=== PATIENT | female | born 1995 | race Caucasian/White ===

== ENCOUNTER → 2017-12-10 08:17 | Outpatient (CLI) | payer SELFPAY ==
[2017-12-10 11:12] LABS: HCG,Quantitative 0 mIU/mL
== END ==
PROVIDERS: Visit Provider Nurse Practitioner Obstetrics & Gynecology
DX: Z32.00 Encounter for pregnancy test, result unknown (principal)
CPT/HCPCS: 36415; 84702

== ENCOUNTER → 2018-01-21 15:25 | Outpatient (CLI) | payer MEDICAID, SELFPAY ==
[2018-01-21 16:11] LABS: Basophils % 0.5 % (0.1-2.0); Eosinophils # 0.2 K/mm3 (0.0-0.4); Eosinophils % 2.7 % (0.1-12.0); Hematocrit 46.4 % (37.0-47.0); Hemoglobin 15.4 g/dL (12.2-16.2); Lymphocytes % 37.2 K/mm3 (10-50); Mean Corpuscular HGB Conc 33.2 g/dL (31.8-35.4); Mean Corpuscular Hemoglobin 30.5 pg (27.0-31.2); Mean Corpuscular Volume 91.9 fl (81-99); Mean Platelet Volume 8.3 fl (7.4-10.4); Monocytes # 0.4 K/mm3 (0.1-1.0); Monocytes % 4.6 % (1.7-9.3); Neutrophils # 4.4 K/mm3 (1.8-7.8); Platelet Count 268 K/mm3 (142-424); Red Blood Count 5.05 M/mm3 (4.20-5.40); Red Cell Distribution Width 12.6 % (11.5-17.5); White Blood Count 7.9 K/mm3 (4.8-10.8)
[2018-01-21 19:18] LABS: HCG,Quantitative 5294 mIU/mL
[2018-01-26 05:19] LABS: HIV Screen 4th Generation wRfx Non Reactive (Non Reactive); Hepatitis B Surface Antigen Negative (Negative); Hepatitis C Antibody 0.1 s/co ratio (0.0-0.9); Rapid Plasma Reagin Ab Titer Non Reactive (NonRea<1:1); Rubella Antibodies, IgG 0.94 index (Immune >0.99)
== END ==
PROVIDERS: Family Provider Physician Assistant; PCP Obstetrics & Gynecology; Visit Provider Obstetrics & Gynecology
DX: Z34.90 Encounter for supervision of normal pregnancy, unspecified, unspecified trimester (principal)
CPT/HCPCS: 36415; 84702; 85025; 86592; 86703; 86762; 86850; 87340; 87380; G0432

== ENCOUNTER → 2018-01-28 08:54 | Outpatient (CLI) | payer MEDICAID, SELFPAY ==
--- NOTE | 2018-01-28 08:57 | US_ITS ---
US OB transvaginal HISTORY: ITS.REASON: US OB Dates ORDERING PHYSICIAN: Bri Childs MD PATIENT AGE: 22 years COMPARISON: None FINDINGS: An intrauterine gestational sac is present with a pole with a crown-rump length of 0.56cm correlating to gestational age of 6w3d. heart tones are present with an FHR of 117 bpm's. Yolk sac is noted. Adnexa: 15 mm right corpus luteum. IMPRESSION: Live intrauterine gestation at 6 weeks 3 days with an estimated due date of 09/20/2018
== END ==
PROVIDERS: Family Provider Physician Assistant; Visit Provider Obstetrics & Gynecology
DX: O26.841 Uterine size-date discrepancy, first trimester (principal)
CPT/HCPCS: 36415; 76817; 84702

== ENCOUNTER → 2018-01-28 09:43 | Outpatient (CLI) | payer MEDICAID, SELFPAY | PROVIDERS: Family Provider Physician Assistant; Visit Provider Obstetrics & Gynecology | DX: Z34.90 Encounter for supervision of normal pregnancy, unspecified, unspecified trimester (principal) | CPT/HCPCS: 36415; 84702 ==

== ENCOUNTER → 2018-05-06 09:02 | Outpatient (CLI) | payer MEDICAID, SELFPAY ==
--- NOTE | 2018-05-06 09:06 | US_ITS ---
US OB /maternal detail: INDICATION: For anatomy and dates ITS.REASON: US OB Complete ORDERING PHYSICIAN: Bri Childs MD PATIENT AGE: 22 years TECHNIQUE: ultrasound transabdominal scanning. COMPARISON: Ultrasound 01/28/2018. FINDINGS: Single viable intrauterine gestation. Breach position. Placenta: Anterior placenta grade 1. There is normal amount fluid. The cervix appears satisfactory. Closed and measuring 3.52 cm in length. Complete survey performed and was unremarkable on the submitted images as in PACS. No discrete anomalies identified on survey imaging by technologist. Active fetus. Three-vessel cord with satisfactory umbilical cord insertion. 4- chamber heart noted. Survey of brain & ventricles. Face and neck survey unremarkable. Diaphragm and chest views unremarkable. Abdomen: Both kidneys noted and unremarkable. Stomach noted and satisfactory. Spine: Survey of the spine satisfactory with no anomalies identified nor imaged. Both arms and legs noted. Amniotic Fluid: Adequate. Maternal adnexa: No significant findings. Measurements: Average ultrasound age 20 weeks and 2 days. Gestational Age 20 weeks 3 days. Estimated due date by ultrasound age 509/21/2018. Estimated weight 346 g +/- 50 1 g grams. BPD = 4.79 cm equaling 20 weeks 4 days OFD = 6.0 cm equaling 20 weeks 3 days HC = 7.06 cm equaling 19 weeks 5 days AC = 15.18 cm equaling 20 weeks 3 days FL = 3.31 cm equaling 20 weeks 3 days Growth Percentile= 39% Heart Rate = 149 bpm Cerebellum = 2.00 cm equaling 20 weeks 3 days HC/AC is 1.12. CI is 80%. FL/BPD is 69%. FL/AC is 22%. IMPRESSION: Breech fetus with grossly normal-appearing anatomy scan and normal amount of amnionic fluid with measurements and dating as described above
== END ==
PROVIDERS: PCP Family Medicine; Visit Provider Obstetrics & Gynecology
DX: Z36.0 Encounter for antenatal screening for chromosomal anomalies (principal)
CPT/HCPCS: 76811

== ENCOUNTER → 2018-05-29 08:25 | Outpatient (CLI) | payer MEDICAID, SELFPAY ==
[2018-05-29 08:48] LABS: Glucose,Fasting 84 mg/dL (60-105)
[2018-05-29 10:55] LABS: Glucose 1 Hour 138 mg/dL (74-106)
== END ==
PROVIDERS: Visit Provider Obstetrics & Gynecology
DX: Z34.90 Encounter for supervision of normal pregnancy, unspecified, unspecified trimester (principal)
CPT/HCPCS: 36415; 82951

== ENCOUNTER → 2018-08-12 13:30 | Outpatient (CLI) | payer MEDICAID, SELFPAY ==
--- NOTE | 2018-08-12 13:37 | US_ITS ---
US OB BPP w/Fet-Mat S/D Ordering Physician: Bri Childs MD Patient Age: 22 years: Female HISTORY: ITS.REASON: US OB BPP Growth, S/D Ratio Family history of tetralogy of flow patient was offered high risk scanning, but did not pursue earlier in gestation. TECHNIQUE: ultrasound transabdominal scanning. COMPARISON: May 06, 2018 complete ultrasound. At which time patient was 20 weeks 2 days average ultrasound age ------. FINDINGS:--------- Single viable intrauterine gestation. Cephalic position.. Placenta: Anterior placenta. Grade 2 . Cervix Closed and measuring 3.14 cm in length. Follow-up survey performed . No abnormalities can be identified.. No discrete anomalies identified on survey imaging by technologist.Active fetus.Three-vessel cord with satisfactory umbilical cord insertion. Limited images brain & ventricles. In posterior fossa unremarkable \ limited survey images ofFace and neck survey unremarkable. Diaphragm and chest views unremarkable. 4- chamber heart imaged imaged extensively.. Multiple Cine loop included. RVOT & LVOT imaged . No VSD identified no flow anomalies evident. We did mention that high-risk center is best suited to best exclude TOF other cardiac abnormalities Abdomen: Both kidneys noted and unremarkable. Stomach noted and satisfactory. Spine: Survey of the spine satisfactory with no anomalies identified nor imaged. Both arms and legs noted.Amniotic Fluid: Adequate. . Measurements: Average ultrasound age 36 week 2 day. Gestational Age 34 week 3 day based on LMP 12/14/2017 Estimated due date by ultrasound age 409/07/2018. Estimated weight 2700 grams. +/- 394 g Growth [id number]% BPD = 37 week 3 day OFD = ... 11.57 cm HC = 37 week 3 day AC = 35 week 1 day FL = 35 week 1 day Heart Rate = 135 bpm. ABHAY = 11.14. Largest pocket measuring 4.18 cm LLQ. ========= BIOPHYSICAL PROFILE. 8 of possible 8 points 2 points scored for each category: breathing, movement, tone, & amniotic fluid volume. . ========= SD ratio = 2.5. RI = 0.5 HC/AC = 1.06 CI = 80%.(70-86%). FL/BPD is 74%. FL/AC is 22%. =====IMPRESSION: 36 week 2 Day Average Ultrasound Age.. Cephalic position . Today's Follow-up Anatomical survey unremarkable & WNL Particular attention directed to the cardiac survey. No VSD identified Biophysical profile 8 of possible 8 points. SD ratio 2.5 ABHAY = 11.14.
== END ==
PROVIDERS: PCP Family Medicine; Visit Provider Obstetrics & Gynecology
DX: Z82.79 Family history of other congenital malformations, deformations and chromosomal abnormalities (principal)
CPT/HCPCS: 76811; 76819; 76820

== ENCOUNTER 2018-08-17 11:34 | Outpatient (CLI) | payer MEDICAID, SELFPAY ==
[2018-08-17 11:54] VITALS: BP 107/68; PULSE 97; RESP 18; TEMP 36.8; O2SAT 97; BMI 23.0
[2018-08-17 12:01] VITALS: BMI 22.8
== END 2018-08-17 12:55 | disposition home or self-care (01) ==
LOC: OBOUT 11:35 → OB 11:36
PROVIDERS: PCP Family Medicine; Visit Provider Obstetrics & Gynecology
DX: O47.03 False labor before 37 completed weeks of gestation, third trimester (principal); Z3A.35 35 weeks gestation of pregnancy
CPT/HCPCS: 59025; 96360; 96372

== ENCOUNTER → 2018-08-17 17:15 | Outpatient (CLI) | payer MEDICAID, SELFPAY | PROVIDERS: Visit Provider Obstetrics & Gynecology | DX: Z34.90 Encounter for supervision of normal pregnancy, unspecified, unspecified trimester (principal) | CPT/HCPCS: 86403 ==

== ENCOUNTER → 2018-09-02 10:14 | Outpatient (CLI) | payer MEDICAID, SELFPAY ==
[2018-09-02 11:12] LABS: Basophils % 0.4 % (0.1-2.0); Eosinophils # 0.1 K/mm3 (0.0-0.4); Eosinophils % 0.8 % (0.1-12.0); Hematocrit 40.4 % (37.0-47.0); Hemoglobin 13.5 g/dL (12.2-16.2); Lymphocytes % 30.6 % (10-50); Mean Corpuscular HGB Conc 33.5 g/dL (31.8-35.4); Mean Corpuscular Hemoglobin 29.6 pg (27.0-31.2); Mean Corpuscular Volume 88.2 fl (81-99); Mean Platelet Volume 9.7 fl (7.4-10.4); Monocytes # 0.4 K/mm3 (0.1-1.0); Monocytes % 4.4 % (1.7-9.3); Neutrophils # 6.3 K/mm3 (1.8-7.8); Neutrophils % 63.8 % (37.0-80.0); Platelet Count 285 K/mm3 (142-424); Red Blood Count 4.58 M/mm3 (4.20-5.40); Red Cell Distribution Width 12.6 % (11.5-17.5); White Blood Count 9.9 K/mm3 (4.8-10.8)
[2018-09-02 13:04] LABS: Alanine Aminotransferase 76 U/L (12-78); Albumin Level 2.8 gm/dL (3.4-5.0); Albumin/Globulin Ratio 0.7 (1.1-1.8); Alkaline Phosphatase 245 U/L (46-116); Anion Gap 13.1 mEq/L (5-15); Aspartate Amino Transferase 36 U/L (15-37); Bilirubin,Total 0.4 mg/dL (0.2-1.0); Blood Urea Nitrogen 8 mg/dL (7-18); Calcium 9.2 mg/dL (8.5-10.1); Carbon Dioxide 25 mmol/L (21.0-32.0); Chloride 102 mmol/L (98-107); Creatinine,Serum 0.56 mg/dL (0.55-1.02); Estimated Glomerular Filt Rate 134 ml/min (>60); GFR (African American) 162 ML/MIN (>60); Globulin 4.1 gm/dl (1.3-3.2); Glucose 74 mg/dL (74-106); Potassium 4.1 mmoL/L (3.5-5.1); Sodium 136 mmol/L (136-145); Total Protein,Serum 6.9 gm/dL (6.4-8.2); Uric Acid 4.7 mg/dL (2.6-7.2)
== END ==
PROVIDERS: Visit Provider Obstetrics & Gynecology
DX: Z34.90 Encounter for supervision of normal pregnancy, unspecified, unspecified trimester (principal)
CPT/HCPCS: 36415; 80053; 84550; 85025

== ENCOUNTER 2018-09-08 22:41 | Outpatient (CLI) | payer MEDICAID, SELFPAY ==
[2018-09-08 23:10] VITALS: BP 140/75; PULSE 129; RESP 20; TEMP 36.9; O2SAT 97; BMI 39.4
[2018-09-08 23:51] LABS: Microscopic, Urine URINE MICROSCOPIC (MICROSCOPIC)
[2018-09-08 23:53] LABS: Appearance,Urine CLEAR (Clear); Bilirubin,Urine Negative (Negative); Blood, Urine Negative (Negative); Color,Urine YELLOW (Yellow); Glucose,Urine (UA) Negative (Negative); Ketones,Urine 2+ (Negative); Leukocyte Esterase,Urine Negative (Negative); Nitrate,Urine Negative (Negative); Protein,Urine Negative (Negative); Urobilinogen,Urine 0.2 EU/dl (0.2)
[2018-09-09 00:04] LABS: Amorphous Sediment,Urine Trace /lpf; Bacteria,Urine 1+ /lpf; Mucus,Urine 1+ /lpf
[2018-09-09 00:06] LABS: Amphetamine/Metha Screen,Urine Negative ng/mL (<1000); Barbiturates Screen,Urine Negative ng/mL (<200); Benzodiazepines Screen,Urine Negative ng/mL (<200); Cannabinoid Screen,Urine Negative ng/mL (<50); Cocaine Screen,Urine Negative ng/mL (<300); Methadone Screen,Urine Negative ng/mL (<300); Opiate Screen,Urine Negative ng/mL (<300); Phencyclidine Screen,Urine Negative ng/mL (<25)
== END 2018-09-09 00:24 | disposition home or self-care (01) ==
LOC: OBOUT 22:44 → OB 22:45
PROVIDERS: PCP Family Medicine; Visit Provider Nurse Practitioner Obstetrics & Gynecology
DX: O60.03 Preterm labor without delivery, third trimester (principal); Z3A.38 38 weeks gestation of pregnancy
CPT/HCPCS: 80305; 81001

== ENCOUNTER 2018-09-11 12:38 | Inpatient (IN) ==
[2018-09-11 13:24] VITALS: BP 119/72
[2018-09-11 13:28] LABS: Microscopic, Urine URINE MICROSCOPIC (MICROSCOPIC)
[2018-09-11 13:31] LABS: Appearance,Urine CLEAR (Clear); Bilirubin,Urine Negative (Negative); Blood, Urine Negative (Negative); Color,Urine YELLOW (Yellow); Glucose,Urine (UA) Negative (Negative); Ketones,Urine Negative (Negative); Leukocyte Esterase,Urine Negative (Negative); Protein,Urine Negative (Negative); Specific Gravity, Urine <= 1.005 (1.005-1.030); Urobilinogen,Urine 0.2 EU/dl (0.2)
[2018-09-11 13:40] LABS: Amphetamine/Metha Screen,Urine Negative ng/mL (<1000); Barbiturates Screen,Urine Negative ng/mL (<200); Benzodiazepines Screen,Urine Negative ng/mL (<200); Cannabinoid Screen,Urine Negative ng/mL (<50); Cocaine Screen,Urine Negative ng/mL (<300); Methadone Screen,Urine Negative ng/mL (<300); Opiate Screen,Urine Negative ng/mL (<300); Phencyclidine Screen,Urine Negative ng/mL (<25)
[2018-09-11 13:42] LABS: Bacteria,Urine 2+ /lpf
[2018-09-11 16:30] LABS: Basophils % 0.2 % (0.1-2.0); Eosinophils # 0.1 K/mm3 (0.0-0.4); Eosinophils % 0.6 % (0.1-12.0); Hematocrit 34.9 % (37.0-47.0); Hemoglobin 11.8 g/dL (12.2-16.2); Lymphocytes # 2.4 K/mm3 (0.7-4.5); Lymphocytes % 29.3 % (10-50); Mean Corpuscular HGB Conc 33.9 g/dL (31.8-35.4); Mean Corpuscular Hemoglobin 28.8 pg (27.0-31.2); Mean Corpuscular Volume 84.9 fl (81-99); Monocytes # 0.4 K/mm3 (0.1-1.0); Monocytes % 5.4 % (1.7-9.3); Neutrophils # 5.2 K/mm3 (1.8-7.8); Neutrophils % 64.5 % (37.0-80.0); Platelet Count 248 K/mm3 (142-424); Red Blood Count 4.11 M/mm3 (4.20-5.40); Red Cell Distribution Width 12.7 % (11.5-17.5); White Blood Count 8.1 K/mm3 (4.8-10.8)
[2018-09-11 16:59] LABS: Eosinophils % 2 % (0-3); Lymphocytes % 32 % (10-50); Monocytes % 3 % (2-9); Neutrophils % 61 % (42-76); RBC Morphology Normal; Total Cells Counted 100
--- NOTE | 2018-09-11 17:50 | History & Physical Report ---
OB - H&P: HPI Antepartum - History of Present Illness Chief complaint: Contraction History of present illness: She is a 22-year-old 1 para 0 at 38 and 5 weeks gestational age. She came in having regular contractions. She has remained at about 3cm 80% effaced and station -1. Stress test is reactive she is having contractions every 1 to 2 minutes [facility] History I have reviewed the patient's past medical history: Yes Medical History: Reports:: Anxiety, Depression Denies:: Asthma, Hyperlipidemia, Hypertension, Seizures *Have you ever received a pneumonia vaccine?: No *Have you received a flu vaccine this season?: No Laterality Cases: Other Surgeries: Yes: Cholecystectomy. No: Amputation: No Fractures: No - *Social History Smoking Status: Former smoker Tobacco Type: cigarettes # Packs/Day (cigarettes): 1 Alcohol Intake: never Substance Use Type: denies use *Occupational Status:: disabled - Psychiatric History Pschychiatric History:: Reports:: Anxiety, Depression Family Hx:: Cancer, Diabetes, Heart Attack, Hypertension, Kidney Disease, Stroke, Anemia, Asthma, Coronary Artery Disease Para: 0 Review of Systems - Review of Systems Review of systems:: pertinent systems reviewed and negative unless documented below Meds Home Medications Medication Instructions Recorded Confirmed Type promethazine 12.5 mg tablet 12.5 mg PO Q6H PRN #30 tab 03/24/18 09/09/18 Rx pediatric multivitamin no.49 1 tab PO DAILY tab 03/30/18 09/09/18 History chewable tablet Omeprazole [Omeprazole 10mg Cap] 10 mg PO DAILY 09/08/18 09/09/18 History Allergies Allergy/AdvReac Type Severity Reaction Status Date / Time acetylcysteine Allergy Intermediate UNABLE TO Verified 09/09/18 10:51 [From MUCOMYST] BREATH tramadol [TRAMADOL] Allergy Intermediate UNABLE TO Verified 09/09/18 10:51 BREATH acetaminophen [From TYLENOL] Allergy Mild WAS Verified 09/09/18 10:51 OVERDOSE Penicillins [PENICILLINS] Allergy Mild Verified 09/09/18 10:51 OB - H&P: Exam - Physical Exam Vital signs: Temp Pulse Resp BP Pulse Ox 98.1 F 94 H 18 119/72 97 09/11/18 13:09/11/18 13:09/11/18 13:09/11/18 13:19 09/11/18 13:19 - Constitutional no acute distress - Routine HEENT Exam Head: Present: normocephalic Eye: Present: EOMI, PERRL ENT: Present: mucous membranes moist - Routine Neck Exam Present: supple, full ROM - Routine Respiratory Exam Absent: accessory muscle use (good air entry bilaterally), respiratory distress, wheezes, crackles - Routine Cardiovascular Exam Present: RRR. Absent: murmur - Routine Abdominal Exam Present: soft, normoactive bowel sounds. Absent: tenderness, distended, guarding - Routine Rectal Exam Patient deferred: visual exam, digital exam - Routine Exam Patient deferred: external exam, groin exam, perineal exam - Routine Extremities Exam Present: full ROM. Absent: cyanosis, edema - Routine Skin Exam Present: intact. Absent: cyanosis - Routine Neurological Exam Present: alert, oriented X3 - Routine Psychiatric Exam Present: normal affect OB - Results - Labs Labs: Short CBC 09/11/18 Range/Units 16:17 WBC 8.1 (4.8-10.8) K/mm3 Hgb 11.8 L (12.2-16.2) g/dL Hct 34.9 L (37.0-47.0) % Plt Count 248 (142-424) K/mm3 Urine 09/11/18 Range/Units 12:58 Urine Color Yellow (Yellow) Urine Appearance Clear (Clear) Urine pH 6.0 (5.0-8.5) Ur Specific [place] <= 1.005 (1.005-1.030) Urine Protein Negative (Negative) Urine Glucose (UA) Negative (Negative) OB - A/P Antepartum (1) Normal delivery at term Current visit: Yes Status: Acute - Additional Plan Plan: expectant management Additional Information:: She is 38 and 5 with regular contractions she did change her cervix from 2 to 3 cm. She is 80% effaced. Baby's head is well down. We will continue to watch her for now and if by the morning she has not progressed we will go ahead and rupture her membranes that she is quite uncomfortable.
--- NOTE | 2018-09-12 09:04 | Progress Note ---
Labor Note - Subjective: Date: 09/12/18 Time: 09:03 regular contraction - Objective: NST:: Reactive Contractions:: every 2-3 minutes Cervical Dilation:: 4 Effacement:: 80% Station: -1 Membranes: artificially ruptured Comment:: I ruptured membranes and there was clear fluid. - Fetus: Monitoring?: Yes monitoring type:: External - Assessment: Labor progressing?: Yes Cephalopelvic disproportion?: No Patient Problems: All Active Problems (Updated 09/11/18 @ 17:50 by Austin Muir MD) Normal delivery at term (Acute) Bipolar 1 disorder (Acute) Medication exposure during first trimester of (Acute) Penicillin allergy (Acute) Obesity, morbid, BMI 40.0-49.9 (Acute) Family history of tetralogy of Fallot (Acute) Rubella non-immune status, antepartum (Acute) Tobacco smoking affecting (Acute) (Acute) - Plan: Anesthesia for epidural?: No Continue to labor down?: Yes Plan for ?: No Continue to monitor?: Yes Comment:: She has had her membranes ruptured and and she has progressed from 3 to 4 cm overnight. We will plan for a vaginal delivery.
--- NOTE | 2018-09-12 12:08 | Progress Note ---
[facility] Anesthesia Checklist - Structural Data Admitted From: Inpatient Planned Operative Procedure/s: labor epidural Consent for Planned Operative Procedure(s) Verified: Yes - Airway Assessment C-Spine Mobility Assessed: Yes TMJ Mobility Assessed: Yes Dentition: Good Dentition - Neurological Assessment Level of Consciousness: Awake, Alert, Appropriate - Anesthesia Plan Anesthesia Risk discussed: Yes Anesthesia Plan: Verified ASA Class: II Anesthesia Type: Epidural [facility] History I have reviewed the patient's past medical history: Yes Medical History: Reports:: Anxiety, Depression Denies:: Asthma, Hyperlipidemia, Hypertension, Seizures *Have you ever received a pneumonia vaccine?: No *Have you received a flu vaccine this season?: No Laterality Cases: Other Surgeries: Yes: Cholecystectomy. No: Amputation: No Fractures: No - *Social History Smoking Status: Former smoker Tobacco Type: cigarettes # Packs/Day (cigarettes): 1 Alcohol Intake: never Substance Use Type: denies use *Occupational Status:: disabled - Psychiatric History Pschychiatric History:: Reports:: Anxiety, Depression Family Hx:: Cancer, Diabetes, Heart Attack, Hypertension, Kidney Disease, Stroke, Anemia, Asthma, Coronary Artery Disease Para: 0
--- NOTE | 2018-09-12 13:55 | Progress Note ---
Labor Note - Subjective: Date: 09/12/18 Time: 13:54 regular contraction - Objective: NST:: Reactive Contractions:: every 2-3 minutes Cervical Dilation:: 5-6 Effacement:: 100% Station: +1 Membranes: artificially ruptured - Fetus: Monitoring?: Yes monitoring type:: Internal - Assessment: Labor progressing?: Yes Cephalopelvic disproportion?: No Patient Problems: All Active Problems (Updated 09/11/18 @ 17:50 by Austin Muir MD) Normal delivery at term (Acute) Bipolar 1 disorder (Acute) Medication exposure during first trimester of (Acute) Penicillin allergy (Acute) Obesity, morbid, BMI 40.0-49.9 (Acute) Family history of tetralogy of Fallot (Acute) Rubella non-immune status, antepartum (Acute) Tobacco smoking affecting (Acute) (Acute) - Plan: Anesthesia for epidural?: Yes Continue to labor down?: Yes Plan for ?: No Continue to monitor?: Yes Start pushing?: No Comment:: The baby's head is well down and there is significant molding. The cervix is 5 to 6 cm and 100% effaced. Station 0 to +1. We will continue to allow her to progress. The nonstress test is reactive. I have inserted an IUPC as well.
--- NOTE | 2018-09-12 15:26 | Procedure Note ---
- Delivery Note Delivery Date:: 09/12/18 Delivery Time:: 15:08 Anesthesia Type: Epidural Was labor medically induced?: No Induction method: none delivered prior to 39 weeks?: Yes Justification for early elective delivery:: Active Labor Infant Gender: Male at 1 minute: 9 at 5 minutes: 9 Delivery Procedure:: She is a 22-year-old 1 para 0 at 38 and 6 weeks gestational age. She came in in early labor. She was observed overnight and change her cervix from 2 to 4 cm. As result of that I elected to per her membranes and deliver her. She was started on IV oxytocin and had her membranes ruptured. Under labor epidural she progressed to full dilation and delivered spontaneously a liveborn male child at 3:08 PM in the afternoon of September 12, 2018. On deliver the head the anterior shoulder rapidly delivered followed by the rest of the infant's body atraumatically. The baby cried spontaneously. The oropharynx and nasopharynx were bulb suction. We allowed the cord to continue to pulsate for approximately 1 minute. The cord was then doubly clamped and cut. The baby was then placed on the mother's abdomen for further care. The nurses assigned Apgars of 9 at 1 minute and 9 at 5 minutes. We then obtained cord blood as well as cord pH. pH 7.38. Using gentle traction on the cord and countertraction the fundus I was able to easily deliver the placenta intact. It had a normal three-vessel cord. She had a small vaginal laceration was repaired with a single interrupted 3-0 Vicryl Rapide suture. She has a positive blood, she is rubella nonimmune and was group B streptococcus negative. She plans to breast-feed. Her seamer operator is Dr. Carrillo. Estimated blood loss was approximately 400 cc. Laceration:: vaginal Placental Delivery Description: Spontaneous
[2018-09-13 06:25] LABS: Hematocrit 29.2 % (37.0-47.0); Hemoglobin 10.1 g/dL (12.2-16.2)
--- NOTE | 2018-09-13 15:23 | Progress Note ---
Internal Medicine - PN: Subj *Date: 09/13/18 *Time: 15:23 Interval history: She continues to do well. She is eating and drinking and ambulating. She is breast-feeding. Her lochia is normal. Exam Vital signs and Labs for Last 24 Hours: Temp Pulse Resp BP Pulse Ox 98.1 F 94 H 18 119/72 97 09/11/18 13:19 09/11/18 13:19 09/11/18 13:19 09/11/18 13:19 09/11/18 13:19 Laboratory Results - last 24 hr 09/12/18 15:05: Cord ABG pH 7.38 09/13/18 05:56: Hgb 10.1 L, Hct 29.2 L I & O for Last 24 hours: Intake & Output 09/11/18 09/12/18 09/13/18 09/14/18 11:59 11:59 11:59 11:59 Weight 226 lb - Constitutional no acute distress Assessment and Plan (1) Normal delivery at term Current visit: Yes Status: Acute Category: Medical Code(s): O80 - Encounter for full-term uncomplicated delivery - Assessment and plan all Dx Assessment and Plan for all problems:: She is doing well. We will plan to send her home tomorrow.
--- NOTE | 2018-09-14 10:40 | Discharge Summary ---
General - General Admission date:: 09/11/18 Discharge date: 09/14/18 HPI HPI: She is a 22-year-old 1 now para 1 who is 38 and 6 weeks gestational age. She came in in early labor. Hospital Course Hospital Course: She came in in early labor and was observed overnight. She changed from 2 to 4 cm. As result of that we elected to allow her labor to progress. She had her membranes ruptured and progressed to full dilation. She delivered spontaneously a liveborn male child at 3:08 PM in the afternoon of September 12, 2018. The baby weighed 7 pounds 10 ounces and was 20 inches long. He had Apgars of 9 at 1 minute and 9 at 5 minutes. She has a positive blood, she is rubella immune and was group A streptococcus negative. She has done well and has remained afebrile throughout hospitalizatio n. There was a concern that the baby may have had a heart problem because the baby's father had tetralogy of fallow. The baby however has been cleared by the jack spooler tender. She is discharged home to follow-up with Dr. Childs in approximately 6 weeks time. She will continue with her vitamins and iron. We discussed control and she will likely have a Mirena IUD. Her condition on discharge is stable. Rhogam Administration: Not Indicated Objective Vital signs: Temp Pulse Resp BP Pulse Ox 98.1 F 94 H 18 119/72 97 09/11/18 13:19 09/11/18 13:19 09/11/18 13:19 09/11/18 13:19 09/11/18 13:19 no acute distress DS: Diagnosis - Discharge Diagnosis (1) Normal delivery at term Status: Acute Discharge Plan - Patient Discharge Instructions ACTIVITY: No heavy lifting DIET: continue same diet - Follow up Plan Disposition: Home, Self-Detention Medications: Home Medications Medication Instructions Recorded Confirmed Type promethazine 12.5 mg tablet 12.5 mg PO Q6H PRN #30 tab 03/24/18 09/12/18 Rx pediatric multivitamin no.49 1 tab PO DAILY tab 03/30/18 09/12/18 History chewable tablet Omeprazole [Omeprazole 10mg Cap] 10 mg PO DAILY 09/08/18 09/12/18 History Prescriptions/Medication Reconciliation: Continued promethazine 12.5 mg tablet 12.5 mg PO Q6H PRN #30 tab PRN Reason: nausea and vomiting pediatric multivitamin no.49 chewable tablet 1 tab PO DAILY tab Omeprazole [Omeprazole 10mg Cap] 10 mg PO DAILY
== END 2018-09-14 11:45 | disposition home or self-care (01) | DRG 807 ==
LOC: RAD 12:38 → OB 12:42
PROVIDERS: ADMIT Nurse Practitioner Obstetrics & Gynecology; ATTEND Nurse Practitioner Obstetrics & Gynecology
CPT/HCPCS: 36415; 59025; 80305; 81001; 82800; 84112; 85007; 85014; 85018; 85048; 85049; 86850; 87086; 90707; 94761; 96360; C1758; J0595

== ENCOUNTER 2020-06-01 16:06 | Emergency (ER) | payer MEDICAID, SELFPAY ==
[2020-06-01 16:07] VITALS: BP 132/79; PULSE 95; RESP 20; TEMP 36.6; O2SAT 98; BMI 43.7
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
--- NOTE | 2020-06-01 16:28 | PC.NURSE ---
[employer] at bedside
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
--- NOTE | 2020-06-01 17:30 | PC.NURSE ---
pt given number for women's crisis.
[2020-06-01 17:31] VITALS: BP 123/74; PULSE 74; RESP 18; TEMP 36.6; O2SAT 98
== END 2020-06-01 17:32 | disposition home or self-care (01) ==
PROVIDERS: Emergency Provider Emergency Medicine; PCP Family Medicine
DX: S20.213A Contusion of bilateral front wall of thorax, initial encounter (principal); S40.022A Contusion of left upper arm, initial encounter; Y04.0XXA Assault by unarmed brawl or fight, initial encounter; Y92.019 Unspecified place in single-family (private) house as the place of occurrence of the external cause; F41.8 Other specified anxiety disorders; F17.290 Nicotine dependence, other tobacco product, uncomplicated; Z88.0 Allergy status to penicillin
CPT/HCPCS: 99281

== ENCOUNTER 2024-03-16 09:29 | Observation (INO) | payer MEDICAID, SELFPAY ==
[2024-03-16] VITALS (15 sets, daily range): BP systolic 100–128; BP diastolic 56–81; PULSE 73–88; RESP 14–17; TEMP 36.5–36.8; O2SAT 95–100; BMI 36.7
--- NOTE | 2024-03-16 10:02 | PC.NURSE ---
Patient arrived to the unit at this time.
[2024-03-16] MEDS: OXYCODONE 5MG IMMEDIATE RELEASE TABLET 10 MG PO ×3 (10:53→20:17)
[2024-03-16] MEDS: KETOROLAC 30MG/ML VIAL 30 MG IV ×3 (10:53→22:35)
[2024-03-16] MEDS: LACTATED RINGERS 1000ML 1,000 ML 125 ML IV ×2 (10:54→20:33)
[2024-03-16] MEDS: CLINDAMYCIN PHOSPHATE/D5W 900 MG/50 ML PIGGYBACK 100 MG IV ×2 (15:00→23:33)
[2024-03-16] MEDS: SENNOSIDES 8.6MG/DOCUSATE 50MG TABLET 1 TAB PO (15:05)
--- NOTE | 2024-03-16 15:30 | PC.NURSE ---
Dr. Muir at bedside.
[2024-03-16] MEDS: METRONIDAZ/SOD CHL 500 MG/100 ML PIGGYBACK 100 MG IV (15:50)
[2024-03-16] MEDS: ACETAMINOPHEN 500MG TAB 1000 MG PO ×2 (15:51→21:46)
[2024-03-16] MEDS: BENZOCAINE-MENTHOL SPRAY 56GM CAN TP (15:53)
[2024-03-17] MEDS: METRONIDAZ/SOD CHL 500 MG/100 ML PIGGYBACK 100 MG IV (00:05)
[2024-03-17] MEDS: OXYCODONE 5MG IMMEDIATE RELEASE TABLET 10 MG PO ×3 (00:26→15:32)
[2024-03-17] MEDS: ACETAMINOPHEN 500MG TAB 1000 MG PO ×2 (03:19→13:03)
[2024-03-17] MEDS: SENNOSIDES 8.6MG/DOCUSATE 50MG TABLET 1 TAB PO (03:19)
[2024-03-17 04:38] VITALS: BP 112/63; PULSE 84; RESP 18; TEMP 36.8; O2SAT 98
[2024-03-17] MEDS: KETOROLAC 30MG/ML VIAL 30 MG IV ×2 (04:39→11:27)
[2024-03-17 04:44] VITALS: O2SAT 98
[2024-03-17 07:46] VITALS: O2SAT 97
[2024-03-17 07:52] VITALS: BP 111/69; PULSE 83; RESP 18; TEMP 36.7; O2SAT 97
[2024-03-17] MEDS: POLYETHYLENE GLYCOL 3350 17 GM PACKET PO (08:04)
[2024-03-17] MEDS: WITCH HAZEL 40 PADS/BOX 1 EACH TP (08:04)
--- NOTE | 2024-03-17 08:08 | PC.NURSE ---
Pt provided with fresh ice pack, tucks pads and Miralax. States she has rested well throughout the night. Scant amt of perineal swelling and edema as well as a hemorrhoid noted on assessment. Lungs clear bilat and throughout. (+) normal active bs noted in all quads. Denies nausea currently. Denies need for pain medication currently. Pt is also sitting on a K-Pad for perineal / rectal relief. Denies problems with voiding, reports rectal pressure like she needs to have a bm. V/S wnl. Saline lock remains in rt hand. Flushes easily. She is currently sitting up eating her breakfast. Sig other at bs asleep in chair.
[2024-03-17 11:30] VITALS: BP 117/68; PULSE 89; RESP 17; TEMP 36.7; O2SAT 98
--- NOTE | 2024-03-17 13:55 | PC.NURSE ---
Pt wanting to go home today. She is getting ready to get up to the bathroom and shower. She c/o new onset of itching. No rash, bumps, hives, etc. noted. Sig other remains at bs attentive to her needs as well.
--- NOTE | 2024-03-17 14:10 | PC.NURSE ---
IV discontinued at this time, catheter intact. Tolerated well. 2x2 gauze and coban applied to site.
--- NOTE | 2024-03-17 14:46 | EXP.DC.SUM ---
General Admission date:: 03/16/24 Discharge date: 03/17/24 HPI HPI HPI: She is a 28-year-old lady who complains of uterovaginal prolapse with the uterus coming out of the vagina. She had a grade 1-2 cystocele, and enterocele as well as a grade 2 rectocele. As result of that she was offered vaginal hysterectomy, anterior repair, enterocele repair, vaginal vault suspension and posterior repair. Hospital Course Hospital Course Hospital Course: On March 16, 2024 she underwent a vaginal hysterectomy, anterior repair, rectocele repair and enterocele repair with vaginal vault suspension. She has done well postoperatively and has remained afebrile with her hospitalization. She is eating and drinking and ambulating. She has not had a bowel movement yet. She is voiding well on her own. She will be discharged home to follow-up with me in 2 weeks time. She was given the usual instructions with respect to limiting her activity, driving and sexual activity. She was given a prescription for Percocet 5/325 #20, ketorolac 10 mg #20 and MiraLAX. Her condition on discharge is stable and improved. Exam Data for Last 24 hours Vital signs and Labs for Last 24 Hours: Temp Pulse Resp BP Pulse Ox O2 Del Method 98.1 F 89 17 117/68 98 Room Air 03/17/24 11:30 03/17/24 11:30 03/17/24 11:30 03/17/24 11:30 03/17/24 11:30 03/17/24 13:00 I & O for Last 24 hours: Intake & Output 03/15/24 03/16/24 03/17/24 03/18/24 11:59 11:59 11:59 11:59 Output Total 2049 Balance -2049 / Weight 214 lb Constitutional Constitutional: no acute distress *Routine HEENT Exam Head: Present normocephalic ENT: Present mucous membranes moist *Routine Neck Exam Neck: Present supple and full ROM *Routine Respiratory Exam Respiratory: Present normal respiratory effort; Absent accessory muscle use *Routine Cardiovascular Exam Cardiovascular: Present RRR *Routine Abdominal Exam Abdominal: Present soft and normoactive bowel sounds; Absent tenderness or distended *Routine Extremities Exam Extremities: Present full ROM DS: Diagnosis Discharge Diagnosis (1) Rectocele with complete uterovaginal prolapse: Status: Acute Code(s): N81.4 - Uterovaginal prolapse, unspecified (2) Enterocele with complete uterovaginal prolapse: Status: Acute Code(s): N81.3 - Complete uterovaginal prolapse (3) Cystocele: Status: Acute Qualifiers: Cystocele location: midline Qualified Code(s): N81.11 - Cystocele, midline (4) Uterovaginal prolapse, complete: Status: Acute Code(s): N81.3 - Complete uterovaginal prolapse (5) Chronic pelvic pain in female: Status: Acute Code(s): R10.2 - Pelvic and perineal pain; G89.29 - Other chronic pain (6) Uterine prolapse: Status: Acute Code(s): N81.4 - Uterovaginal prolapse, unspecified Meds Home Medications and Allergies Home Medications ?Medication ?Instructions ?Recorded ?Confirmed ?Type tizanidine 4 mg tablet (Zanaflex) 4 mg PO HS muscle spasms 12/30/23 03/16/24 History phentermine 37.5 mg tablet 37.5 mg PO DAILY 02/04/24 03/16/24 History (Adipex-P) topiramate 25 mg tablet 25 mg PO BID 03/16/24 03/16/24 History ketorolac 10 mg tablet 10 mg PO Q6H #20 tabs 03/17/24 Rx oxycodone-acetaminophen 5 mg-325 1 tab PO Q6H PRN pain #20 tabs 03/17/24 Rx mg tablet polyethylene glycol 3350 17 17 g PO DAILY #510 grams 03/17/24 Rx gram/dose oral powder (ClearLax) New Prescriptions to Start Prescriptions: ketorolac Austin Muir oxycodone-acetaminophen Austin Muir polyethylene glycol 3350 [ClearLax] Austin Muir Allergies Allergy/AdvReac Type Severity Reaction Status Date / Time acetylcysteine Allergy Intermediate UNABLE TO Verified 03/16/24 06:45 [From MUCOMYST] BREATH tramadol [TRAMADOL] Allergy Intermediate UNABLE TO Verified 03/16/24 06:45 BREATH Penicillins [PENICILLINS] Allergy Mild Unknown Verified 03/16/24 06:45 allergy reaction Discharge Plan Disposition Patient Disposition: Home, Self-Care Discharge Order Discharge Orders: Discharge Order (Routine); Ordered 11/06/24 Ordered By: Austin Muir Follow up Plan Prescriptions/Medication Reconciliation: New ketorolac 10 mg Tablet 10 mg PO Q6H Qty: 20 0RF oxycodone-acetaminophen 5-325 mg tablet 1 tab PO Q6H PRN (Reason: pain) Qty: 20 0RF polyethylene glycol 3350 [ClearLax] 17 gram/dose powder 17 g PO DAILY Qty: 510 1RF Continued phentermine [Adipex-P] 37.5 mg tablet 37.5 mg PO DAILY Patient Comments: TAKE ONE (1) TABLET EVERY DAY BY ORAL ROUTE FOR 30 DAYS. tizanidine [Zanaflex] 4 mg tablet 4 mg PO HS Patient Comments: Patient reports taking daily only as needed. topiramate 25 mg tablet 25 mg PO BID Problem Reconciliation Problems Reviewed?: Yes Patient Discharge Instructions ACTIVITY: No heavy lifting DIET: continue same diet Additional Instructions: Avoid intense activity. Do not lift more than a full shopping bag. This may last up to 4 weeks. Do not have sex until your doctor says it is safe to do so. This may last for up to 6 weeks. Avoid swimming or using a hot tub until your doctor says it is okay. Wait to return to work until your doctor says it is safe to do so. Do not drive until your doctor says it is safe to do so. Patient Instructions: DI for Episiotomy, DI for Vaginal Hysterectomy Print Language: Senegalese Providers Primary Care Provider: Provider,Referral Admit Provider: Austin Muir Attending Provider: Austin Muir
[2024-03-17] MEDS: BENZOCAINE-MENTHOL SPRAY 56GM CAN TP (15:32)
--- NOTE | 2024-03-17 15:38 | PC.NURSE ---
Discharge instructions provided. Verbalized understanding of as well as follow up appt. Sig other also present during instructions.
--- NOTE | 2024-03-17 15:39 | PC.NURSE ---
Pt discharged to private vehicle via wc by SRNA. Francesca
== END 2024-03-17 15:35 | disposition home or self-care (01) | DRG 743 ==
PROVIDERS: Admitting Provider Nurse Practitioner Obstetrics & Gynecology; Visit Provider Nurse Practitioner Obstetrics & Gynecology
DX: N81.3 Complete uterovaginal prolapse (principal); R10.2 Pelvic and perineal pain; G89.29 Other chronic pain
CPT/HCPCS: 57240; 58270; 36415; 80053; 81001; 81025; 85014; 85018; 85025; 86850; 96365; 96374; G0378; J0736; J1100; J1171; J1885; J2250; J2405; J3010; J7030; J7120

== ENCOUNTER 2024-03-25 10:29 | Emergency (ER) | payer MEDICAID, SELFPAY ==
[2024-03-25 10:31] VITALS: BP 142/100; PULSE 80; RESP 18; TEMP 36.8; O2SAT 99; BMI 37.4
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
[2024-03-25 10:42] VITALS: PULSE 85; O2SAT 100
--- NOTE | 2024-03-25 11:15 | PC.NURSE ---
DR SMITH AT BEDSIDE
--- NOTE | 2024-03-25 11:16 | CT_ITS ---
PROCEDURE INFORMATION: Exam: CT Abdomen And Pelvis With Contrast Exam date and time: 03/25/2024 12:27 PM Age: 28 years old Clinical indication: Abdominal pain; Additional info: Post hysterectomy abd pain, dysuria TECHNIQUE: Imaging protocol: Computed tomography of the abdomen and pelvis with contrast. Radiation optimization: All CT scans at this facility use at least one of these dose optimization techniques: automated exposure control; mA and/or kV adjustment per patient size (includes targeted exams where dose is matched to clinical indication); or iterative reconstruction. Contrast material: ISOVUE; Contrast volume: 75 ml; Contrast route: IV; COMPARISON: No relevant prior studies available. FINDINGS: Lungs: Partially calcified nodule demonstrated anteriorly in the right upper lobe. Possible granuloma versus hamartoma. Liver: Density throughout the liver compatible with hepatic steatosis. Gallbladder and biliary ducts: Cholecystectomy Pancreas: Pancreas unremarkable Spleen: The spleen is unremarkable. Adrenal glands: Adrenal glands unremarkable. Kidneys and ureters: No hydronephrosis. Stomach and bowel: Mild-moderate stool burden Appendix: Appendix unremarkable Intraperitoneal space: Unremarkable. No free air. No significant fluid collection. Vasculature: Unremarkable. No abdominal aortic aneurysm. Lymph nodes: scattered nonspecific mesenteric lymph nodes Urinary bladder: Unremarkable as visualized. Reproductive: Unremarkable as visualized. Bones/joints: Unremarkable. No acute fracture. Soft tissues: Unremarkable. IMPRESSION: No evidence of acute abnormality.
[2024-03-25 11:24] LABS: Basophils # 0.1 K/mm3 (0-0.2); Basophils % 1.1 % (0.1-2.0); Eosinophils # 0.3 K/mm3 (0.0-0.4); Eosinophils % 3.2 % (0.1-12.0); Hematocrit 41.8 % (37.0-47.0); Hemoglobin 14.4 g/dL (12.2-16.2); Lymphocytes # 2.8 K/mm3 (0.7-4.5); Lymphocytes % 35.6 % (10-50); Mean Corpuscular HGB Conc 34.5 g/dL (31.8-35.4); Mean Corpuscular Hemoglobin 31.8 pg (27.0-31.2); Mean Corpuscular Volume 92.4 fl (81-99); Mean Platelet Volume 8.7 fl (7.4-10.4); Monocytes # 0.4 K/mm3 (0.1-1.0); Monocytes % 5.5 % (1.7-9.3); Neutrophils # 4.4 K/mm3 (1.8-7.8); Neutrophils % 54.7 % (37.0-80.0); Platelet Count 296 K/mm3 (142-424); Red Blood Count 4.52 M/mm3 (4.20-5.40); Red Cell Distribution Width 13.4 % (11.5-17.5)
[2024-03-25 11:28] LABS: Alanine Aminotransferase 84 U/L (12-78); Albumin Level 4.7 g/dl (3.5-5.0); Albumin/Globulin Ratio 1.5 (1.1-1.8); Alkaline Phosphatase 57 U/L (38-126); Anion Gap 15.1 mEq/L (5-15); Aspartate Amino Transferase 57 U/L (14-36); Bilirubin,Total 0.7 mg/dl (0.2-1.3); Blood Urea Nitrogen 14 mg/dl (7-17); Calcium 9.2 mg/dl (8.4-10.2); Carbon Dioxide 25 mmol/L (22.0-30.0); Chloride 105 mmol/L (98-107); Creatinine Clearance Estimated 185 mL/min (50-200); Estimated Glomerular Filt Rate 99 ml/min (>60); GFR (African American) 120 ML/MIN (>60); Globulin 3.2 g/dL (1.3-3.2); Potassium 4.1 mmoL/L (3.5-5.1); Sodium 141 mmol/L (136-145); Total Protein,Serum 7.9 g/dl (6.3-8.2)
[2024-03-25 11:35] LABS: Glucose 43 mg/dl (74-100)
[2024-03-25 11:37] LABS: HCG Qualitative, Serum Negative (Negative)
[2024-03-25 11:42] LABS: Microscopic, Urine URINE MICROSCOPIC (MICROSCOPIC)
[2024-03-25] MEDS: DEXTROSE 50% 50ML SYRINGE (CRASH CART) 50 ML IVP (11:43)
[2024-03-25 11:44] LABS: Appearance,Urine CLEAR (Clear); Bilirubin,Urine Negative (Negative); Blood, Urine 1+ (Negative); Color,Urine YELLOW (Yellow); Glucose,Urine (UA) Negative (Negative); Ketones,Urine Negative (Negative); Leukocyte Esterase,Urine 1+ (Negative); Nitrate,Urine Negative (Negative); Protein,Urine Negative (Negative); Specific Gravity, Urine 1.015 (1.005-1.030); Urobilinogen,Urine 0.2 EU/dl (0.2)
[2024-03-25 12:12] LABS: Bacteria,Urine Trace /lpf; Squamous Epithelial Cell,Urine Occasional #/hpf (0-5); WBC,Urine Occasional #/hpf (0-3)
[2024-03-25] MEDS: SODIUM CHLORIDE 0.9% 10ML SYR (RAD ONLY) 10 ML IV (12:31)
[2024-03-25] MEDS: IOPAMIDOL-370 (76%);100ML BOTTLE 75 ML IV (12:31)
--- NOTE | 2024-03-25 12:56 | PC.NURSE ---
glucose is 72
[2024-03-25 13:15] VITALS: BP 133/74; PULSE 91; RESP 16; TEMP 36.7; O2SAT 99
== END 2024-03-25 13:16 | disposition home or self-care (01) ==
PROVIDERS: Emergency Provider Emergency Medicine; PCP Family Medicine
DX: R50.9 Fever, unspecified (principal); R10.30 Lower abdominal pain, unspecified; N93.9 Abnormal uterine and vaginal bleeding, unspecified; R30.9 Painful micturition, unspecified
CPT/HCPCS: 74177; 80053; 81001; 84703; 85025; 87040; 87086; 99285; Q9967